=== PATIENT | male | born 1970 | race Caucasian/White ===

== ENCOUNTER 2016-12-03 16:49 | Emergency (ER) | payer OTHER, MEDICAID ==
[~2016-12-03] VITALS: Wt 115.0 kg
[~2016-12-03 16:49] MED LIST: ADV25050 INHALATION; ALBU8.5H3 PO; AMIT25TA9 PO; ATOR20TA17 PO; BECL8.7A PO; CARV25TA97 PO; CARV6.25 PO; FLUT9.9S NASAL; GLIM4TAB55 PO; GLIP5TAB13 PO; HYDR-3010 PO; HYDR-762 PO; LANT3I SC; LEVO250T35 PO; LIRA0.6P SC; LOSA25TA5 PO; METF1000 PO; METF850T PO; MIRT15TA5 PO; PANT40TA3 PO; PRED20 PO; PREG50CA PO; QUET100T32 PO; RTPRO5 NEB; TEMA30CA PO; TIOT18CA IH; TRAM-40 PO; VARE1TAB20 PO
[2016-12-03 18:30] LABS: URINE BLOOD (Dip) POC Negative (NEGATIVE)
--- NOTE | 2016-12-03 19:15 | RADRPT ---
PROCEDURE: XR Chest. CLINICAL INDICATION: Chest pain. TECHNIQUE: Single frontal chest x-ray. COMPARISON: Chest radiograph 11/25/2014. FINDINGS: The cardiomediastinal silhouette is unremarkable. Aortic atherosclerotic vascular calcifications are identified. There are bilateral low lung volumes with vascular crowding and mild bibasilar atelectasis. No pneum othorax, pleural effusion or consolidation is seen. No acute osseous abnormality is noted. IMPRESSION: 1. Low lung volumes with compressive changes and mild bibasilar atelectasis. 2. Mild aortic atherosclerosis. RPTAT: HFN .Robson Mac MD, Date Time Electronically viewed and signed by .Robson Mac MD, on 12/03/2016 19:15 .N/
[2016-12-03] MEDS ORDERED: AMOX1TAB10 PO (19:46)
[2016-12-03] MEDS ORDERED: D-ME473S18 PO (19:46)
[2016-12-03] MEDS ORDERED: IBUP-1542 PO (19:46)
[2016-12-03] MEDS ORDERED: AZIT250T94 PO (19:47)
--- NOTE | 2016-12-03 19:50 | ERD ---
ER Documentation Chief Complaint Date/Time DATE: 12/03/16 TIME: 19:48 Chief Complaint BACK PAIN FOR THE PAST MONTH, MILD SOB AND COUGH. RECENT PNA HPI This 46-year-old male complains of upper back pain for last month. He also has a cough and productive sputum. Patient is concerned because she has a history of pneumonia requiring chest tubes . Had surgery on his left lung for complications of pneumonia. His last pneumonia was 4 years ago. Denies fevers. Denies urinary complaints. ROS All systems reviewed and are negative except as per history of present illness. Medications Home Meds Active Scripts Azithromycin* (Zithromax*) 250 Mg Tablet, 250 MG PO .ZPACK DIRECTED, #6 TAB TAKE 500 MG (2 TABS) THE FIRST DAY THEN 250 MG (1 TAB) DAYS 2-5 Prov:VICTORINA MUNOZ MD 12/03/16 Dextromethorphan Hb-Promethazine Hcl (Promethazine DM Syrup) 473 Ml Syrup, 5 ML PO Q6H Y for COUGH, #4 OZ Prov:VICTORINA MUNOZ MD 12/03/16 Ibuprofen* (Motrin*) 600 Mg Tab, 600 MG PO Q6, #20 TAB Prov:VICTORINA MUNOZ MD 12/03/16 Amitriptyline Hcl* (Amitriptyline Hcl*) 25 Mg Tablet, 25 MG PO QHS, #30 TAB Prov:MELIA EAST NP 11/05/15 Pantoprazole* (Protonix*) 40 Mg Tablet.dr, 40 MG PO DAILY for 30 Days, TAB 3 Refills Prov:CAROL SAMPSON 11/27/14 Tiotropium [place]* (Spiriva*) 18 Mcg Cap.w.dev, 1 INH IH DAILY for 30 Days, EA 3 Refills Prov:CAROL SAMPSON 11/27/14 Levofloxacin* (Levaquin*) 250 Mg Tab, 750 MG PO Q24H for 7 Days Prov:CAROL SAMPSON 11/27/14 Carvedilol* (Coreg*) 6.25 Mg Tab, 6.25 MG PO BID for 30 Days, 3 Refills Prov:CAROL SAMPSON 11/27/14 Albuterol Sulfate* (Proventil* Neb) 2.5 Mg/0.5 Ml Nebu, 2.5 MG NEB Q4H RESP THERAPY Y for SHORTNESS OF BREATH, #90 3 Refills Prov:CAROL SAMPSON 11/27/14 Prednisone (Prednisone) 20 Mg Tab, 30 MG PO DAILY for 6 Days, TAB Prov:CAROL SAMPSON 11/27/14 Beclomethasone Dip* (Qvar 40*) 7.3 Gm Inha, 1 PUFF PO BID for 30 Days Prov:CAROL SAMPSON 11/27/14 Reported Medications Insulin Glargine* (Lantus*) 100 Unit/Ml Soln, 25 UNIT SC HS, EA 11/05/15 Varenicline Tartrate (Chantix) 1 Mg Tablet, 1 MG PO BID, TAB 11/05/15 Salmeterol Xinaf/Fluticasone* (Advair*) 250-50 Diskus Inhaler, 1 INH INHALATION BID, #1 INHALER 11/05/15 Fluticasone Propionate (Flonase Allergy Relief) 9.9 Ml [place].susp, 2 SPRAY NASAL DAILY, #1 BOTTLE TO EACH NOSTRIL 11/05/15 Hydrocodone Bit-Acetaminophen* ([place]*) 10-325 Mg Tablet, 1 TAB PO Q8 Y for PAIN , TAB 11/05/15 Temazepam* (Temazepam*) 30 Mg Capsule, 30 MG PO HS Y for INSOMNIA, CAP 11/05/15 Glipizide* (Glipizide*) 5 Mg Tablet, 5 MG PO BID, TAB 11/05/15 Carvedilol* (Coreg*) 25 Mg Tablet, 25 MG PO BID, TAB 11/05/15 Metformin Hcl* (Metformin Hcl*) 850 Mg Tablet, 850 MG PO TID, #30 TAB 11/05/15 Pregabalin* (Lyrica*) 50 Mg Capsule, 50 MG PO TID, CAP 11/05/15 Tramadol Hcl* (Ultram*) 50 Mg Tablet, 50 MG PO Q8, TAB 11/05/15 Mirtazapine* (Mirtazapine*) 15 Mg Tablet, 15 MG PO HS, TAB 11/03/14 Quetiapine Fumarate* (Quetiapine Fumarate*) 100 Mg Tablet, 100 MG PO DAILY, TAB 11/03/14 Losartan Potassium* (Losartan Potassium*) 25 Mg Tablet, 20 MG PO DAILY, TAB 11/03/14 Liraglutide (Victoza 2-Balbir) 0.6 Mg/0.1 Ml Pen.injctr, 1.2 UNITS SC DAILY 08/21/12 Glimepiride* (Amaryl*) 4 Mg Tablet, 4 MG PO DAILY 08/21/12 Atorvastatin (Lipitor) 20 Mg Tablet, 20 MG PO DAILY 08/21/12 Albuterol Sulfate* (Proair HFA*) 8.5 Gm Hfa.aer.ad, 1 PUFF PO DAILY Y for WHEEZING AND SOB 08/21/12 Hydroxyzine Hcl* (Hydroxyzine Hcl*) 10 Mg Tablet, 10 MG PO DAILY 08/21/12 Metformin Hcl* (Metformin Hcl*) 1,000 Mg Tablet, 1000 MG PO TID 08/21/12 Discontinued Scripts Amoxicillin/Potassium Clav (Amox-Clav 875-125 mg Tablet) 875-125 mg Tab, 1 TAB PO BID for 7 Days, #14 TAB Prov:VICTORINA MUNOZ MD 12/03/16 Allergies Allergies: Coded Allergies: No Known Allergy (Unverified , 11/02/14) PMhx/Soc History of Surgery: Yes (HERNIA REPAIR) Anesthesia Reaction: No Hx Neurological Disorder: No Hx Respiratory Disorders: Yes (ASTHMA) Hx Cardiac Disorders: Yes (HTN) Hx Psychiatric Problems: Yes (ANXIETY) Hx Miscellaneous Medical Probl: Yes (HIGH CHOLESTEROL, SLEEP APNEA) Hx Alcohol Use: Yes (3 YEARS AGO) Hx Substance Use: Yes (3 YEARS AGO, METH) Hx Tobacco Use: Yes (3-4 cigs) Smoking Status: Current every day smoker Physical Exam Vitals Vital Signs Date Time Temp Pulse Resp B/P Pulse Ox O2 Delivery O2 Flow Rate FiO2 12/03/16 17:34 98.8 77 20 114/76 99 Physical Exam Const: [] Alert, [id number] per Head: Atraumatic Eyes: Normal Conjunctiva ENT: Normal External Ears, Nose and Mouth. Neck: Full range of motion..~ No meningismus. Resp: Clear to auscultation bilaterally. There is some no appreciable tenderness although the patient points to the area of the bilateral lower lung marie as the source of his pain. No midline tenderness or deformities. Cardio: Regular rate and rhythm, no murmurs Abd: Soft, non tender, non distended. Normal bowel sounds Skin: No petechiae or rashes Back: No midline or flank tenderness Ext: No cyanosis, or edema Neur: Awake and alert Psych: Normal Mood and Affect Results 24 hrs Laboratory Tests Test 12/03/16 18:31 Bedside Urine Blood Negative Bedside Urine Glucose (UA) 0.50% Bedside Urine Ketones (LAB) Negative Bedside Urine Leukocyte Esterase (L Negative Bedside Urine Nitrite (LAB) Negative Bedside Urine Protein (LAB) Negative Bedside Urine pH (LAB) 6.0 Procedures/MDM Chest X-ray 1V Interpreted by me: Soft Tissue: No acute abnormalities Bones: No acute abnormalities Mediastinum/Cardiac Silhouette/Lungs: [No acute abnormalities]. Impression- no acute findings on chest x-ray. Urine shows slight glucose but no blood, leukocytes. Patient presents with URI symptoms and upper back pain, likely pleurisy. Given the productive cough he will be treated with Zithromax, promethazine and ibuprofen. Signs and symptoms are not consistent with pulmonary embolism, acute coronary syndrome, aortic disease, respiratory distress, etiology. He will be instructed to follow-up with primary doctor this week return to the ER for any worsening symptoms. Departure Diagnosis: Primary Impression: Back pain Back pain location: thoracic back pain Chronicity: acute Back pain laterality: bilateral Qualified Code: M54.6 - Acute bilateral thoracic back pain Condition: Stable Patient Instructions: Acute Bronchitis Additional Instructions: X-ray read as normal today. Urine shows no acute abnormalities. We will treat for bronchitis. Recheck with primary doctor or for new or worsening symptoms. VICTORINA MUNOZ MD Dec 03, 2016 19:50
[2016-12-03 20:09] VITALS: BP 135/84; PULSE 72; RESP 24; TEMP 98.5
== END 2016-12-03 20:10 | disposition home or self-care (01) ==
LOC: E/R 16:49 → FTE 20:10
DX: M54.6 Pain in thoracic spine (principal); J45.909 Unspecified asthma, uncomplicated; I10 Essential (primary) hypertension; F17.210 Nicotine dependence, cigarettes, uncomplicated
CPT/HCPCS: 71010; 81003; 82962